=== PATIENT | male | born 1950 | race Caucasian/White ===

== ENCOUNTER 2016-08-20 00:54 | Emergency (ER) | payer OTHER | END 2016-08-20 03:15 | disposition critical access hospital (66) | LOC: ER 00:54 | DX: J44.0 Chronic obstructive pulmonary disease with (acute) lower respiratory infection (principal); J18.1 Lobar pneumonia, unspecified organism; I10 Essential (primary) hypertension; I25.2 Old myocardial infarction; E11.9 Type 2 diabetes mellitus without complications; F17.210 Nicotine dependence, cigarettes, uncomplicated; K21.9 Gastro-esophageal reflux disease without esophagitis; Z79.899 Other long term (current) drug therapy; Z79.82 Long term (current) use of aspirin; Z79.84 Long term (current) use of oral hypoglycemic drugs; Z88.6 Allergy status to analgesic agent | CPT/HCPCS: 96374; 96375 ==

== ENCOUNTER 2016-08-20 00:54 | Observation (INO) | payer OTHER, SELFPAY ==
[2016-08-22] MEDS ORDERED: DAILY VITE1 EACH PO (15:33)
[2016-08-22] MEDS ORDERED: TOPROL XL25 MG PO (15:33)
[2016-08-22] MEDS ORDERED: VITAMIN D3400 UNI1 PO (15:34)
[2016-08-22] MEDS ORDERED: PULMICORT0.5 MG/2 M NEB (15:34)
[2016-08-22] MEDS ORDERED: CALCIUM600 MG PO (15:34)
[2016-08-22] MEDS ORDERED: ASPIR 8181 MG PO (15:40)
[2016-08-22] MEDS ORDERED: OMEPRAZOLE20 MG PO (15:40)
[2016-08-22] MEDS ORDERED: NEURONTIN300 MG PO (15:40)
[2016-08-22] MEDS ORDERED: LOPID600 MG PO (15:40)
[2016-08-22] MEDS ORDERED: CULTURELLE1 EACH PO (15:41)
[2016-08-22] MEDS ORDERED: PROSCAR5 MG PO (15:41)
[2016-08-22] MEDS ORDERED: ALLEGRA ALLERGY60 MG PO (15:41)
[2016-08-22] MEDS ORDERED: IPRAT-ALBUT 0.5-3 ML NEB (15:42)
[2016-08-22] MEDS ORDERED: LASIX20 MG PO (15:42)
[2016-08-22] MEDS ORDERED: NORCO 5-325 TA1 EACH PO (15:42)
[2016-08-22] MEDS ORDERED: METHOCARBAMOL750 MG PO (15:42)
[2016-08-22] MEDS ORDERED: PRAVASTATIN SOD10 MG PO (15:43)
[2016-08-22] MEDS ORDERED: ULTRAM50 MG PO (15:43)
[2016-08-22] MEDS ORDERED: FLOMAX0.4 MG PO (15:43)
[2016-08-22] MEDS ORDERED: ALDACTONE25 MG PO (15:44)
[2016-08-22] MEDS ORDERED: ACETAMINOPHEN325 MG PO (15:44)
[2016-08-22] MEDS ORDERED: TESSALON PERLE100 MG PO (15:44)
[2016-08-22] MEDS ORDERED: MUCINEX600 MG PO (15:45)
[2016-08-22] MEDS ORDERED: MEDROL4 M1 PO (15:46)
[2016-08-22] MEDS ORDERED: LEVEMIR FL100 UNIT/1 TD (15:46)
[2016-08-22] MEDS ORDERED: LEVAQUIN750 MG PO (15:47)
[2016-08-22] MEDS ORDERED: BROVANA15 MCG/2 M NEB (15:47)
[2016-08-22] MEDS ORDERED: GLUCOTROL5 MG PO (15:47)
== END 2016-08-22 15:44 | disposition home or self-care (01) ==
LOC: ER 00:54 → MED 03:16
PROVIDERS: ADMIT Internal Medicine
DX: J44.1 Chronic obstructive pulmonary disease with (acute) exacerbation (principal); E11.65 Type 2 diabetes mellitus with hyperglycemia; N18.4 Chronic kidney disease, stage 4 (severe); I50.22 Chronic systolic (congestive) heart failure; M47.812 Spondylosis without myelopathy or radiculopathy, cervical region; M54.5 Low back pain; I73.9 Peripheral vascular disease, unspecified; I13.0 Hypertensive heart and chronic kidney disease with heart failure and stage 1 through stage 4 chronic kidney disease, or unspecified chronic kidney disease; E11.22 Type 2 diabetes mellitus with diabetic chronic kidney disease; K21.9 Gastro-esophageal reflux disease without esophagitis; I25.10 Atherosclerotic heart disease of native coronary artery without angina pectoris; N40.0 Benign prostatic hyperplasia without lower urinary tract symptoms; Z79.82 Long term (current) use of aspirin; Z79.891 Long term (current) use of opiate analgesic; Z79.52 Long term (current) use of systemic steroids; Z79.899 Other long term (current) drug therapy; Z95.1 Presence of aortocoronary bypass graft; Z88.8 Allergy status to other drugs, medicaments and biological substances; Z87.891 Personal history of nicotine dependence; Z82.49 Family history of ischemic heart disease and other diseases of the circulatory system; Z82.3 Family history of stroke
CPT/HCPCS: 36415; 87502; 94664; 96367; 96374; 96375; 96376; G0378; J0456; J0696

== ENCOUNTER 2016-09-15 15:32 | Emergency (ER) | payer OTHER ==
[~2016-09-15 15:32] MED LIST: ACETAMINOPHEN325 MG PO; ALDACTONE25 MG PO; ALLEGRA ALLERGY60 MG PO; ASPIR 8181 MG PO; BROVANA15 MCG/2 M NEB; CALCIUM600 MG PO; CULTURELLE1 EACH PO; DAILY VITE1 EACH PO; FLOMAX0.4 MG PO; GLUCOTROL5 MG PO; IPRAT-ALBUT 0.5-3 ML NEB; LASIX20 MG PO; LEVAQUIN750 MG PO; LEVEMIR FL100 UNIT/1 TD; LOPID600 MG PO; MEDROL4 M1 PO; METHOCARBAMOL750 MG PO; MUCINEX600 MG PO; NEURONTIN300 MG PO; NORCO 5-325 TA1 EACH PO; OMEPRAZOLE20 MG PO; PRAVASTATIN SOD10 MG PO; PROSCAR5 MG PO; PULMICORT0.5 MG/2 M NEB; TESSALON PERLE100 MG PO; TOPROL XL25 MG PO; ULTRAM50 MG PO; VITAMIN D3400 UNI1 PO
== END 2016-09-15 18:20 | disposition home or self-care (01) ==
LOC: ER 15:32
DX: J44.9 Chronic obstructive pulmonary disease, unspecified (principal); E11.9 Type 2 diabetes mellitus without complications; K21.9 Gastro-esophageal reflux disease without esophagitis; I10 Essential (primary) hypertension; I25.2 Old myocardial infarction; Z90.49 Acquired absence of other specified parts of digestive tract; Z79.82 Long term (current) use of aspirin; Z95.5 Presence of coronary angioplasty implant and graft; Z95.1 Presence of aortocoronary bypass graft
CPT/HCPCS: 36415; 87502; 96361; 96374; J1940